=== PATIENT | female | born 1950 | race African-American/Black ===

== ENCOUNTER 2021-01-07 13:53 | Inpatient (IN) | payer MEDICARE, BC ==
[2021-01-07] MEDS ORDERED: Ondansetron PF 4 MG/2 ML Vial ONE (14:48)
[2021-01-07] MEDS ORDERED: Acetaminophen 500 MG TAB ONE (14:48)
[2021-01-07] MEDS ORDERED: Morphine 4 MG/ML VIAL ONE (14:48)
[2021-01-07 14:57] LABS: Bilirubin Negative (Negative); Blood, Urine Negative (Negative); Clarity Clear (Clear); Glucose, Urine (Dipstick) Normal (Negative); Ketone, Urine Negative (Negative); Leukocyte Negative Leu/uL (Negative); Nitrite Negative (Negative); Protein, Urine (Dipstick) 10 mg/dL (Neg-Trace); Specific Gravity, Urine 1.024 (1.002-1.036); Urobilinogen Normal mg/dL (Less than 2); pH, Urine 5.5 (5.0-9.0)
[2021-01-07 14:58] LABS: Hemoglobin 13.2 g/dL (12.0-16.0); Mean Corpuscular HGB CONC 32.5 g/dL (32.0-36.0); Mean Corpuscular Hemoglobin 26.7 pg (27.0-31.0); Mean Corpuscular Volume 82.3 fL (78.0-98.0); Mean Platelet Volume 9.6 fL (7.4-10.4); Platelet Count 218 thou/uL (130-400); RBC Distribution Width 14.8 % (11.5-14.5); Red Blood Cell (RBC) Count 4.94 mill/uL (4.20-5.40); White Blood Cell (WBC) Count 8.7 thou/uL (4.8-10.8)
[2021-01-07] MEDS ORDERED: Iopamidol-370 76% 500 ML 1 ML ONE (15:07)
[2021-01-07 15:14] LABS: ALT (SGPT) 37 U/L (8-55); AST (SGOT) 31 U/L (5-34); Albumin 3.7 g/dL (3.4-4.8); Alkaline Phosphatase 109 U/L (40-110); Anion Gap 16 mmol/L (10-20); BUN (Urea Nitrogen) 19 mg/dL (9.8-20.1); Bilirubin, Total 0.4 mg/dL (0.2-1.2); Calc. Creatinine Clearance 0 mL/min (70-130); Calcium 8.9 mg/dL (7.8-10.44); Carbon Dioxide 21 mmol/L (23-31); Chloride 104 mmol/L (98-107); Glucose 202 mg/dL (80-115); Lipase 11 U/L (8-78); Potassium 3.8 mmol/L (3.5-5.1); Protein, Total 7.7 g/dL (5.8-8.1); Sodium 137 mmol/L (136-145)
[2021-01-07 15:33] LABS: Band 16 % (5-11); Eosinophils 1 % (0-10); Lymphocytes 16 % (21-51); MDiff Complete? YES; Monocytes 8 % (0-10); Neutrophil 46 % (42-75); Platelet Morphology Comment Appears Adequate; Polychromasia SLIGHT = 2-3 cells (100X) (0-2/hpf); Reactive Lymphocytes 13 % (0-10)
[2021-01-07] MEDS ORDERED: Piperacillin/Tazobactam 4.5 GM VIAL ONE (17:26)
[2021-01-07] MEDS ORDERED: Ondansetron PF 4 MG/2 ML Vial IVP PRN (19:12)
[2021-01-07] MEDS ORDERED: Dextrose 5% in Water 1,000 ML IV PRN (19:22)
[2021-01-07] MEDS ORDERED: Dextrose 50% Abboject 50 ML SYRINGE SLOW IVP PRN (19:22)
[2021-01-07] MEDS: Sodium Chloride 0.9% 1,000 ML IV SCH (20:17)
[2021-01-07] MEDS: Heparin 5,000 UNITS/ML VIAL SC SCH (20:17)
[2021-01-07] MEDS: Morphine 2 MG/ML VIAL SLOW IVP PRN (20:18)
[2021-01-07] MEDS ORDERED: Dexamethasone 6 MG in Sodium Chloride 0.9% 50 ML IVPB SCH (21:00)
[2021-01-07 22:08] VITALS: BMI 34.4
[2021-01-08] MEDS: Piperacillin/Tazobactam 3.375 GM in Sodium Chloride 0.9% 100 ML IVPB SCH ×4 (00:43→17:13)
[2021-01-08 01:47] LABS: SARS-CoV-2 PCR by NAA DETECTED (NotDetected)
[2021-01-08] MEDS: Morphine 2 MG/ML VIAL SLOW IVP PRN ×3 (05:04→20:49)
[2021-01-08] MEDS: hydrALAZINE 20 MG/ML VIAL SLOW IVP PRN ×2 (05:11→16:38)
[2021-01-08 06:36] LABS: #Monocytes 0.6 thou/uL (0.11-0.59); #Neutrophils 3.3 thou/uL (1.40-6.50); %Basophils 0.4 % (0.0-1.0); %Eosinophils 0.3 % (0.0-10.0); %Lymphocytes 43.5 % (21.0-51.0); %Monocytes 8.5 % (0.0-10.0); %Neutrophils 47.3 % (42.0-75.0); Hemoglobin 12.1 g/dL (12.0-16.0); Mean Corpuscular HGB CONC 31.4 g/dL (32.0-36.0); Mean Corpuscular Hemoglobin 25.6 pg (27.0-31.0); Mean Corpuscular Volume 81.6 fL (78.0-98.0); Mean Platelet Volume 8.9 fL (7.4-10.4); Platelet Count 207 thou/uL (130-400); RBC Distribution Width 14.7 % (11.5-14.5); Red Blood Cell (RBC) Count 4.74 mill/uL (4.20-5.40); White Blood Cell (WBC) Count 6.9 thou/uL (4.8-10.8)
[2021-01-08 07:03] LABS: ALT (SGPT) 34 U/L (8-55); AST (SGOT) 28 U/L (5-34); Albumin 3.3 g/dL (3.4-4.8); Alkaline Phosphatase 97 U/L (40-110); Anion Gap 16 mmol/L (10-20); BUN (Urea Nitrogen) 15 mg/dL (9.8-20.1); Bilirubin, Total 0.5 mg/dL (0.2-1.2); Calc. Creatinine Clearance 73 mL/min (70-130); Calcium 8.3 mg/dL (7.8-10.44); Carbon Dioxide 21 mmol/L (23-31); Chloride 105 mmol/L (98-107); Globulin 3.4 g/dL (2.4-3.5); Glucose 106 mg/dL (80-115); Potassium 3.7 mmol/L (3.5-5.1); Protein, Total 6.7 g/dL (5.8-8.1); Sodium 138 mmol/L (136-145)
[2021-01-08] MEDS: Pilocarpine 1% Ophth Drops 15 ML BOT EA EYE SCH ×4 (08:50→20:17)
[2021-01-08] MEDS: Dorzolamide HCl 2% Ophth Soln 10 ml Bottle EA EYE SCH ×2 (08:51→20:18)
[2021-01-08] MEDS: Timolol 0.5% Ophth Soln 5 ml Bottle L EYE SCH ×2 (08:53→20:17)
[2021-01-08] MEDS: Heparin 5,000 UNITS/ML VIAL SC SCH ×3 (08:53→20:19)
[2021-01-08] MEDS ORDERED: Non-Formulary Item 1 EACH (Omeprazole [Omeprazole] 40 MG Capsule.Dr) PO SCH (09:00)
[2021-01-08] MEDS ORDERED: Non-Formulary Item 1 EACH (Gabapentin [Gabapentin] 600 MG Tablet) PO SCH (09:00)
[2021-01-08] MEDS: Ascorbic Acid 500 mg Chewable Tablet PO SCH (09:53)
[2021-01-08] MEDS: Gabapentin 300 MG CAP PO SCH ×3 (09:53→20:16)
[2021-01-08] MEDS: Zinc Sulfate 220 MG CAP PO SCH (09:54)
[2021-01-08] MEDS: Sodium Chloride 0.9% 1,000 ML IV SCH ×2 (11:00→22:10)
[2021-01-08] MEDS ORDERED: Lidocaine 5% Patch TD SCH ×3 (12:53→13:15)
[2021-01-08] MEDS ORDERED: DULoxetine 30 MG CAP PO SCH (13:15)
[2021-01-08] MEDS: DULoxetine 30 MG CAP PO SCH (13:40)
[2021-01-08] MEDS: HumaLOG 300 UNITS/3 ML VIAL SC PRN ×2 (16:38→20:20)
[2021-01-08] MEDS: Atorvastatin Calcium 10 MG TAB PO SCH (20:16)
[2021-01-08] MEDS: Transdermal Patch Removal TOP SCH (20:40)
[2021-01-08] MEDS: Dexamethasone 6 MG in Sodium Chloride 0.9% 50 ML IVPB SCH (20:41)
[2021-01-08] MEDS: Latanoprost 0.005% Ophth Soln 2.5 ml Bottle EA EYE SCH (23:48)
[2021-01-09] MEDS: Piperacillin/Tazobactam 3.375 GM in Sodium Chloride 0.9% 100 ML IVPB SCH ×3 (00:32→12:01)
[2021-01-09] MEDS: Sodium Chloride 0.9% 1,000 ML IV SCH ×2 (00:55→16:39)
[2021-01-09] MEDS: Latanoprost 0.005% Ophth Soln 2.5 ml Bottle EA EYE SCH ×2 (01:00→20:08)
[2021-01-09] MEDS: hydrALAZINE 20 MG/ML VIAL SLOW IVP PRN ×3 (03:04→23:13)
[2021-01-09] MEDS: Morphine 2 MG/ML VIAL SLOW IVP PRN ×4 (03:54→21:30)
[2021-01-09] MEDS: HumaLOG 300 UNITS/3 ML VIAL SC PRN ×3 (05:10→18:03)
[2021-01-09 07:35] LABS: #Lymphocytes 1.5 thou/uL (1.20-3.40); #Monocytes 0.2 thou/uL (0.11-0.59); #Neutrophils 2.6 thou/uL (1.40-6.50); %Basophils 0.2 % (0.0-1.0); %Eosinophils 0.1 % (0.0-10.0); %Lymphocytes 34.2 % (21.0-51.0); %Monocytes 4.3 % (0.0-10.0); %Neutrophils 61.2 % (42.0-75.0); Hemoglobin 12.1 g/dL (12.0-16.0); Mean Corpuscular Hemoglobin 26.4 pg (27.0-31.0); Mean Corpuscular Volume 82.3 fL (78.0-98.0); Mean Platelet Volume 9.3 fL (7.4-10.4); Platelet Count 207 thou/uL (130-400); RBC Distribution Width 14.6 % (11.5-14.5); White Blood Cell (WBC) Count 4.2 thou/uL (4.8-10.8)
[2021-01-09 07:56] LABS: Anion Gap 14 mmol/L (10-20); BUN (Urea Nitrogen) 14 mg/dL (9.8-20.1); Calc. Creatinine Clearance 81 mL/min (70-130); Calcium 8.2 mg/dL (7.8-10.44); Carbon Dioxide 21 mmol/L (23-31); Chloride 104 mmol/L (98-107); Glucose 240 mg/dL (80-115); Potassium 3.6 mmol/L (3.5-5.1); Sodium 135 mmol/L (136-145)
[2021-01-09] MEDS: Pilocarpine 1% Ophth Drops 15 ML BOT EA EYE SCH ×4 (08:00→20:06)
[2021-01-09] MEDS: Dorzolamide HCl 2% Ophth Soln 10 ml Bottle EA EYE SCH ×2 (08:00→20:06)
[2021-01-09] MEDS: Timolol 0.5% Ophth Soln 5 ml Bottle L EYE SCH ×2 (08:00→20:06)
[2021-01-09] MEDS: Gabapentin 300 MG CAP PO SCH ×3 (08:01→20:04)
[2021-01-09] MEDS: Zinc Sulfate 220 MG CAP PO SCH (08:01)
[2021-01-09] MEDS: DULoxetine 30 MG CAP PO SCH (08:01)
[2021-01-09] MEDS: Heparin 5,000 UNITS/ML VIAL SC SCH ×3 (08:02→20:05)
[2021-01-09] MEDS: Ascorbic Acid 500 mg Chewable Tablet PO SCH (08:02)
[2021-01-09] MEDS: Lidocaine 5% Patch TD SCH (08:03)
[2021-01-09] MEDS ORDERED: fentaNYL 50 mcg/hour Patch TD SCH (13:00)
[2021-01-09] MEDS: Atorvastatin Calcium 10 MG TAB PO SCH (20:04)
[2021-01-09] MEDS: Dexamethasone 6 MG in Sodium Chloride 0.9% 50 ML IVPB SCH (20:04)
[2021-01-09] MEDS: Transdermal Patch Removal TOP SCH (22:30)
[2021-01-10] MEDS: HumaLOG 300 UNITS/3 ML VIAL SC PRN ×4 (03:46→17:00)
[2021-01-10] MEDS: Sodium Chloride 0.9% 1,000 ML IV SCH (05:07)
[2021-01-10 07:24] LABS: #Lymphocytes 1.5 thou/uL (1.20-3.40); #Monocytes 0.3 thou/uL (0.11-0.59); #Neutrophils 4.4 thou/uL (1.40-6.50); %Basophils 0.1 % (0.0-1.0); %Eosinophils 0.1 % (0.0-10.0); %Lymphocytes 24.3 % (21.0-51.0); %Monocytes 4.5 % (0.0-10.0); Hemoglobin 11.5 g/dL (12.0-16.0); Mean Corpuscular HGB CONC 32.1 g/dL (32.0-36.0); Mean Corpuscular Hemoglobin 26.6 pg (27.0-31.0); Mean Platelet Volume 9.3 fL (7.4-10.4); Platelet Count 204 thou/uL (130-400); RBC Distribution Width 14.6 % (11.5-14.5); Red Blood Cell (RBC) Count 4.33 mill/uL (4.20-5.40); White Blood Cell (WBC) Count 6.2 thou/uL (4.8-10.8)
[2021-01-10 07:31] LABS: Anion Gap 10 mmol/L (10-20); BUN (Urea Nitrogen) 11 mg/dL (9.8-20.1); Calc. Creatinine Clearance 83 mL/min (70-130); Calcium 7.9 mg/dL (7.8-10.44); Carbon Dioxide 25 mmol/L (23-31); Chloride 104 mmol/L (98-107); Glucose 258 mg/dL (80-115); Potassium 3.4 mmol/L (3.5-5.1); Sodium 136 mmol/L (136-145)
[2021-01-10] MEDS: Morphine 2 MG/ML VIAL SLOW IVP PRN ×3 (08:20→21:25)
[2021-01-10] MEDS: Zinc Sulfate 220 MG CAP PO SCH (09:21)
[2021-01-10] MEDS: Lidocaine 5% Patch TD SCH (09:21)
[2021-01-10] MEDS: Gabapentin 300 MG CAP PO SCH ×3 (09:22→20:54)
[2021-01-10] MEDS: Ascorbic Acid 500 mg Chewable Tablet PO SCH (09:23)
[2021-01-10] MEDS: DULoxetine 30 MG CAP PO SCH (09:23)
[2021-01-10] MEDS: Pilocarpine 1% Ophth Drops 15 ML BOT EA EYE SCH ×4 (09:24→20:50)
[2021-01-10] MEDS: Dorzolamide HCl 2% Ophth Soln 10 ml Bottle EA EYE SCH ×2 (09:24→20:54)
[2021-01-10] MEDS: Heparin 5,000 UNITS/ML VIAL SC SCH ×3 (09:25→20:55)
[2021-01-10] MEDS: Timolol 0.5% Ophth Soln 5 ml Bottle L EYE SCH ×2 (09:25→20:51)
[2021-01-10] MEDS ORDERED: Potassium Chloride 20 MEQ TAB PO SCH (12:30)
[2021-01-10] MEDS: hydrALAZINE 20 MG/ML VIAL SLOW IVP PRN (17:20)
[2021-01-10] MEDS: Latanoprost 0.005% Ophth Soln 2.5 ml Bottle EA EYE SCH (20:51)
[2021-01-10] MEDS: Dexamethasone 6 MG in Sodium Chloride 0.9% 50 ML IVPB SCH (20:55)
[2021-01-10] MEDS: Insulin Glargine 15 UNITS in Pre-Filled Syringe SC SCH (20:55)
[2021-01-10] MEDS: Atorvastatin Calcium 10 MG TAB PO SCH (21:20)
[2021-01-10] MEDS: Transdermal Patch Removal TOP SCH (21:35)
[2021-01-11] MEDS: HumaLOG 300 UNITS/3 ML VIAL SC PRN ×2 (05:51→20:26)
[2021-01-11] MEDS: hydrALAZINE 20 MG/ML VIAL SLOW IVP PRN (05:52)
[2021-01-11] MEDS: DULoxetine 30 MG CAP PO SCH (08:03)
[2021-01-11] MEDS: Gabapentin 300 MG CAP PO SCH ×3 (08:03→20:23)
[2021-01-11] MEDS: Ascorbic Acid 500 mg Chewable Tablet PO SCH (08:03)
[2021-01-11] MEDS: Zinc Sulfate 220 MG CAP PO SCH (08:04)
[2021-01-11] MEDS: Pilocarpine 1% Ophth Drops 15 ML BOT EA EYE SCH ×4 (08:04→20:24)
[2021-01-11] MEDS: Timolol 0.5% Ophth Soln 5 ml Bottle L EYE SCH ×2 (08:04→20:24)
[2021-01-11] MEDS: Heparin 5,000 UNITS/ML VIAL SC SCH ×3 (08:04→20:23)
[2021-01-11] MEDS: Dorzolamide HCl 2% Ophth Soln 10 ml Bottle EA EYE SCH ×2 (08:05→20:25)
[2021-01-11] MEDS: Lidocaine 5% Patch TD SCH (08:07)
[2021-01-11] MEDS: Morphine 2 MG/ML VIAL SLOW IVP PRN ×2 (08:26→21:44)
[2021-01-11] MEDS ORDERED: fentaNYL 50 mcg/hour Patch TD SCH (10:00)
[2021-01-11] MEDS ORDERED: Insulin Glargine 10 UNITS in Pre-Filled Syringe 1 EACH SC SCH (10:45)
[2021-01-11] MEDS: Albuterol 200 PUFF (6.7GM INHALER) INH SCH ×2 (13:50→18:36)
[2021-01-11] MEDS: Acetaminophen/Codeine 30-300mg Tablet PO PRN ×2 (14:37→20:35)
[2021-01-11] MEDS: tiZANidine HCl 4 MG TAB PO PRN (18:36)
[2021-01-11] MEDS: Dexamethasone 6 MG in Sodium Chloride 0.9% 50 ML IVPB SCH (20:22)
[2021-01-11] MEDS: Atorvastatin Calcium 10 MG TAB PO SCH (20:23)
[2021-01-11] MEDS: Latanoprost 0.005% Ophth Soln 2.5 ml Bottle EA EYE SCH (20:25)
[2021-01-11] MEDS: Transdermal Patch Removal TOP SCH (20:25)
[2021-01-11] MEDS: Insulin Glargine 15 UNITS in Pre-Filled Syringe SC SCH (20:26)
[2021-01-12] MEDS: Albuterol 200 PUFF (6.7GM INHALER) INH SCH ×4 (01:32→18:27)
[2021-01-12] MEDS: HumaLOG 300 UNITS/3 ML VIAL SC PRN ×3 (06:18→20:13)
[2021-01-12] MEDS: Gabapentin 300 MG CAP PO SCH ×3 (08:36→20:04)
[2021-01-12] MEDS: DULoxetine 30 MG CAP PO SCH (08:36)
[2021-01-12] MEDS: Ascorbic Acid 500 mg Chewable Tablet PO SCH (08:36)
[2021-01-12] MEDS: Zinc Sulfate 220 MG CAP PO SCH (08:36)
[2021-01-12] MEDS: Pilocarpine 1% Ophth Drops 15 ML BOT EA EYE SCH ×4 (08:37→20:02)
[2021-01-12] MEDS: Heparin 5,000 UNITS/ML VIAL SC SCH ×3 (08:37→20:03)
[2021-01-12] MEDS: Timolol 0.5% Ophth Soln 5 ml Bottle L EYE SCH ×2 (08:37→20:02)
[2021-01-12] MEDS: Dorzolamide HCl 2% Ophth Soln 10 ml Bottle EA EYE SCH ×2 (08:38→20:03)
[2021-01-12] MEDS: Acetaminophen/Codeine 30-300mg Tablet PO PRN ×2 (08:38→16:16)
[2021-01-12] MEDS: Lidocaine 5% Patch TD SCH (08:41)
[2021-01-12] MEDS: Morphine 2 MG/ML VIAL SLOW IVP PRN ×4 (10:09→22:49)
[2021-01-12] MEDS: Insulin Glargine 10 UNITS in Pre-Filled Syringe 1 EACH SC SCH (10:09)
[2021-01-12] MEDS: tiZANidine HCl 4 MG TAB PO PRN (11:13)
[2021-01-12] MEDS: Dexamethasone 6 MG in Sodium Chloride 0.9% 50 ML IVPB SCH (20:03)
[2021-01-12] MEDS: Insulin Glargine 15 UNITS in Pre-Filled Syringe SC SCH (20:03)
[2021-01-12] MEDS: Latanoprost 0.005% Ophth Soln 2.5 ml Bottle EA EYE SCH (20:03)
[2021-01-12] MEDS: Transdermal Patch Removal TOP SCH (20:04)
[2021-01-12] MEDS: Atorvastatin Calcium 10 MG TAB PO SCH (20:04)
[2021-01-13] MEDS: Albuterol 200 PUFF (6.7GM INHALER) INH SCH ×3 (02:36→12:08)
[2021-01-13] MEDS: Acetaminophen/Codeine 30-300mg Tablet PO PRN (04:09)
[2021-01-13] MEDS: Morphine 2 MG/ML VIAL SLOW IVP PRN ×2 (05:06→09:51)
[2021-01-13] MEDS: HumaLOG 300 UNITS/3 ML VIAL SC PRN ×2 (05:16→12:08)
[2021-01-13] MEDS: Lidocaine 5% Patch TD SCH (08:26)
[2021-01-13] MEDS: Heparin 5,000 UNITS/ML VIAL SC SCH ×2 (08:26→15:17)
[2021-01-13] MEDS: Insulin Glargine 10 UNITS in Pre-Filled Syringe 1 EACH SC SCH (08:26)
[2021-01-13] MEDS: Timolol 0.5% Ophth Soln 5 ml Bottle L EYE SCH (08:27)
[2021-01-13] MEDS: Pilocarpine 1% Ophth Drops 15 ML BOT EA EYE SCH ×2 (08:27→12:08)
[2021-01-13] MEDS: Dorzolamide HCl 2% Ophth Soln 10 ml Bottle EA EYE SCH (08:27)
[2021-01-13 08:44] VITALS: TEMP 97.8
[2021-01-13] MEDS: Ascorbic Acid 500 mg Chewable Tablet PO SCH (09:18)
[2021-01-13] MEDS: DULoxetine 30 MG CAP PO SCH (09:18)
[2021-01-13] MEDS: Zinc Sulfate 220 MG CAP PO SCH (09:19)
[2021-01-13] MEDS: Gabapentin 300 MG CAP PO SCH ×2 (09:19→15:16)
[2021-01-13 15:44] VITALS: BP 174/63
== END 2021-01-13 15:35 | disposition home or self-care (01) | DRG 177 ==
LOC: ERS 13:53 → T4-B 18:06 → INTOOBSV 18:06 → OBSVTOIN 01-08 16:23
PROVIDERS: ADMIT Internal Medicine; ATTEND Internal Medicine
PROC: 8E0ZXY6 Isolation (ICD-10-PCS; principal; 2021-01-08)
DX: U07.1 COVID-19 (principal); J12.82 Pneumonia due to coronavirus disease 2019; M51.16 Intervertebral disc disorders with radiculopathy, lumbar region; M99.79 Connective tissue and disc stenosis of intervertebral foramina of abdomen and other regions; E11.9 Type 2 diabetes mellitus without complications; E78.5 Hyperlipidemia, unspecified; I10 Essential (primary) hypertension; G47.33 Obstructive sleep apnea (adult) (pediatric); H40.9 Unspecified glaucoma; M25.559 Pain in unspecified hip; G89.4 Chronic pain syndrome; R07.89 Other chest pain; Z98.1 Arthrodesis status; Z79.899 Other long term (current) drug therapy
CPT/HCPCS: 36415; 36416; 71045; 71275; 72148; 74177; 80048; 80053; 81003; 83605; 83690; 84484; 85025; 87040; 87086; 87635; 93005; 96365; 96366; 96372; 96375; 96376; G0378; J0360; J1100; J1644; J1815; J2270; J2405; J2543; J3490; Q9967; U0003; U0005

== ENCOUNTER 2021-01-16 00:47 | Emergency (ER) | payer MEDICARE, BC ==
[2021-01-16 01:32] LABS: #Monocytes 0.7 thou/uL (0.11-0.59); #Neutrophils 8.4 thou/uL (1.40-6.50); %Basophils 0.3 % (0.0-1.0); %Eosinophils 0.1 % (0.0-10.0); %Lymphocytes 10.3 % (21.0-51.0); %Monocytes 6.5 % (0.0-10.0); %Neutrophils 82.8 % (42.0-75.0); Hemoglobin 11.7 g/dL (12.0-16.0); Mean Corpuscular HGB CONC 33.4 g/dL (32.0-36.0); Mean Corpuscular Hemoglobin 27.1 pg (27.0-31.0); Mean Corpuscular Volume 81.2 fL (78.0-98.0); Mean Platelet Volume 8.1 fL (7.4-10.4); Platelet Count 339 thou/uL (130-400); RBC Distribution Width 14.2 % (11.5-14.5); Red Blood Cell (RBC) Count 4.33 mill/uL (4.20-5.40); White Blood Cell (WBC) Count 10.1 thou/uL (4.8-10.8)
[2021-01-16 01:52] LABS: ALT (SGPT) 29 U/L (8-55); AST (SGOT) 26 U/L (5-34); Alkaline Phosphatase 86 U/L (40-110); Anion Gap 17 mmol/L (10-20); BUN (Urea Nitrogen) 24 mg/dL (9.8-20.1); Bilirubin, Total 0.6 mg/dL (0.2-1.2); Calc. Creatinine Clearance 0 mL/min (70-130); Carbon Dioxide 28 mmol/L (23-31); Chloride 92 mmol/L (98-107); Glucose 391 mg/dL (80-115); Potassium 3.3 mmol/L (3.5-5.1); Protein, Total 6.7 g/dL (5.8-8.1); Sodium 134 mmol/L (136-145)
[2021-01-16] MEDS ORDERED: Acetaminophen 500 MG TAB ONE (01:59)
[2021-01-16 02:03] LABS: Albumin 3.2 g/dL (3.4-4.8); Globulin 3.5 g/dL (2.4-3.5)
[2021-01-16 02:20] LABS: Bacteria/HPF None Seen HPF (None Seen); Bilirubin Negative (Negative); Blood, Urine Negative (Negative); Clarity Clear (Clear); Glucose, Urine (Dipstick) 500 mg/dL (Negative); Ketone, Urine Negative (Negative); Leukocyte Negative Leu/uL (Negative); Nitrite Negative (Negative); Protein, Urine (Dipstick) 100 mg/dL (Neg-Trace); RBC/HPF 0-3 HPF (0-3); Specific Gravity, Urine 1.027 (1.002-1.036); Squamous Epithelial 0-3 HPF (0-3); WBC/HPF 0-3 HPF (0-3); pH, Urine 6.5 (5.0-9.0)
== END 2021-01-16 02:40 | disposition home or self-care (01) ==
LOC: ERS 00:47
DX: E11.65 Type 2 diabetes mellitus with hyperglycemia (principal); U07.1 COVID-19; I10 Essential (primary) hypertension; E78.00 Pure hypercholesterolemia, unspecified; G43.909 Migraine, unspecified, not intractable, without status migrainosus; Z79.899 Other long term (current) drug therapy
CPT/HCPCS: 36416; 71045; 80053; 81003; 81015; 83690; 84484; 85025; 93005

== ENCOUNTER 2022-11-19 16:06 | Outpatient (CLI) | payer MEDICARE | END 2022-11-19 16:07 | disposition home or self-care (01) | LOC: BICRAD 16:06 | PROVIDERS: ATTEND Internal Medicine | DX: R06.02 Shortness of breath (principal) | CPT/HCPCS: 71046 ==

== ENCOUNTER 2023-01-08 14:07 | Outpatient (CLI) | payer MEDICARE | END 2023-01-08 14:08 | disposition home or self-care (01) | LOC: BICRAD 14:07 | PROVIDERS: ATTEND Internal Medicine | DX: M79.671 Pain in right foot (principal) ==

== ENCOUNTER 2023-09-29 14:32 | Emergency (ER) | payer MEDICARE ==
[~2023-09-29 14:32] MED LIST: Iopamidol 370 76% 100 ML VIAL ONE
[2023-09-29] MEDS ORDERED: Ondansetron PF 4 MG/2 ML Vial ONE (15:26)
[2023-09-29] MEDS ORDERED: Morphine 4 MG/ML VIAL ONE (15:26)
[2023-09-29 15:32] LABS: #Basophils 0.1 thou/uL (0.0-0.2); #Eosinphils 0.2 thou/uL (0.0-0.7); #Monocytes 0.7 thou/uL (0.11-0.59); #Neutrophils 7.1 thou/uL (1.40-6.50); %Basophils 0.6 % (0.0-1.0); %Eosinophils 1.7 % (0.0-10.0); %Lymphocytes 32.7 % (21.0-51.0); %Monocytes 5.9 % (0.0-10.0); %Neutrophils 58.8 % (42.0-75.0); Hematocrit 41.4 % (36.0-47.0); Hemoglobin 12.9 g/dL (12.0-16.0); Mean Corpuscular HGB CONC 31.2 g/dL (32.0-36.0); Mean Corpuscular Hemoglobin 25.9 pg (27.0-31.0); Mean Platelet Volume 10.5 fL (7.4-10.4); Platelet Count 294 10x3/uL (130-400); RBC Distribution Width 15.9 % (11.5-14.5); Red Blood Cell (RBC) Count 4.99 mill/uL (4.20-5.40)
[2023-09-29 16:00] LABS: ALT (SGPT) 27 U/L (8-55); AST (SGOT) 19 U/L (5-34); Albumin 3.8 g/dL (3.4-4.8); Alkaline Phosphatase 113 U/L (40-110); Anion Gap 14 mmol/L (10-20); BUN (Urea Nitrogen) 18 mg/dL (9.8-20.1); Bilirubin, Total 0.5 mg/dL (0.2-1.2); Calc. Creatinine Clearance 0 mL/min (70-130); Calcium 9.4 mg/dL (7.8-10.44); Carbon Dioxide 26 mmol/L (23-31); Chloride 100 mmol/L (98-107); Estimated GFR 67; Globulin 3.7 g/dL (2.4-3.5); Glucose 88 mg/dL (83-110); Lipase 15 U/L (8-78); Potassium 3.7 mmol/L (3.5-5.1); Protein, Total 7.5 g/dL (5.8-8.1); Sodium 136 mmol/L (136-145)
[2023-09-29 16:04] LABS: Troponin I Less than 0.010 ng/mL (< 0.028)
== END 2023-09-29 17:13 | disposition home or self-care (01) ==
LOC: ERS 14:32
DX: R07.9 Chest pain, unspecified (principal); M54.2 Cervicalgia; E11.9 Type 2 diabetes mellitus without complications; I10 Essential (primary) hypertension; E78.00 Pure hypercholesterolemia, unspecified; V89.2XXA Person injured in unspecified motor-vehicle accident, traffic, initial encounter
CPT/HCPCS: 36415; 71260; 72125; 74177; 80053; 83690; 84484; 85025; 93005; 96374; 96375; J2270; J2405; Q9967

== ENCOUNTER 2025-06-30 15:51 | Emergency (ER) | payer MEDICARE ==
[2025-06-30] MEDS ORDERED: Ondansetron PF 4 MG/2 ML Vial ONE (16:38)
[2025-06-30 16:46] LABS: #Basophils 0.06 10x3/uL (0.0-0.2); #Eosinophils 0.11 10x3/uL (0.0-0.7); #Monocytes 0.53 10x3/uL (0.11-0.59); #Neutrophils 6.45 10x3/uL (1.40-6.50); %Basophils 0.6 % (0.0-1.0); %Eosinophils 1.0 % (0.0-10.0); %Lymphocytes 31.8 % (21.0-51.0); %Monocytes 5.0 % (0.0-10.0); %Neutrophils 61.3 % (42.0-75.0); Hematocrit 41.6 % (36.0-47.0); Hemoglobin 13.6 g/dL (12.0-16.0); Mean Corpuscular Hemoglobin 26.4 pg (27.0-31.0); Mean Corpuscular Volume 80.8 fL (78.0-98.0); Platelet Count 255 10x3/uL (130-400); Red Blood Cell (RBC) Count 5.15 mill/uL (4.20-5.40); White Blood Cell (WBC) Count 10.53 10x3/uL (4.8-10.8)
[2025-06-30 17:14] LABS: ALT (SGPT) 31 U/L (Less than 34); AST (SGOT) 28 U/L (11-34); Albumin 3.7 g/dL (3.1-4.5); Alkaline Phosphatase 89 U/L (40-110); Anion Gap 13 mmol/L (10-20); BUN (Urea Nitrogen) 17 mg/dL (9.8-20.1); Bilirubin, Total 0.5 mg/dL (0.3-1.2); Calc. Creatinine Clearance 0 mL/min (70-130); Calcium 9.6 mg/dL (7.8-10.44); Carbon Dioxide 27 mmol/L (23-31); Chloride 104 mmol/L (98-107); Globulin 3.8 g/dL (2.4-3.5); Glucose 134 mg/dL (83-110); Lipase 18 U/L (8-78); Potassium 3.6 mmol/L (3.5-5.1); Sodium 140 mmol/L (136-145)
[2025-06-30 18:26] LABS: CAUTI Indications for Culture Pelvic or flank pain; Glucose, Urine (Dipstick) Greater than 1000 mg/dL (Negative); Leukocyte Negative Leu/uL (Negative); Protein, Urine (Dipstick) Negative (Neg-Trace); RBC/HPF 0-3 HPF (0-3); Specific Gravity, Urine 1.031 (1.002-1.036); WBC/HPF 0-3 HPF (0-3); Yeast-Budding 1+ HPF (None Seen)
[2025-06-30 18:27] LABS: Bacteria/HPF 1+ HPF (None Seen)
[2025-06-30 18:28] LABS: Urine Culture Reflex No No
== END 2025-06-30 21:21 | disposition home or self-care (01) ==
LOC: ERS 15:51
DX: M54.50 Low back pain, unspecified (principal); E11.9 Type 2 diabetes mellitus without complications; I10 Essential (primary) hypertension; E78.00 Pure hypercholesterolemia, unspecified; Z79.899 Other long term (current) drug therapy; Z79.84 Long term (current) use of oral hypoglycemic drugs
CPT/HCPCS: 74177; 80053; 81001; 83690; 85025; J2270; J2405; 96374; 96375; 96376